=== PATIENT | male | born 1955 | race Caucasian/White ===

== ENCOUNTER 2021-01-29 17:10 | Emergency (ER) | payer SELFPAY ==
[~2021-01-29] VITALS: Ht 172.7 cm; Wt 69.4 kg
[2021-01-29 17:15] VITALS: BP 97/70
--- NOTE | 2021-01-29 17:35 | NUR ---
PT W/ C/O anxiety been in [place] for 13 months. tried to refil tamsilosin and could not refill. just need this rx refilled. experiencing urinary retention.PT STATES "I JUST WANT A PRESCIRPTION REFILL, I DON'T WANT TO BE CHECK OUT" PT REFUSING UA, LABS, AND WORK UP. DR. HAY AT BEDSIDE FOR EVALUATION.
--- NOTE | 2021-01-29 17:40 | NUR ---
THIS RN EDUCATED PT ON THE IMPORTANCE OF HAVING URINE CHECKED OUT SINCE PT STATED HE HASN'T URINATED SINCE YESTERDAY, PT STATES "I WILL BE FINE I JUST WANT MY REFILL"
--- NOTE | 2021-01-29 18:12 | NUR ---
Patient/Caregiver given discharge instructions and they have confirmed that they understand the instructions. Patient ambulatory with steady gait.
== END 2021-01-29 18:14 | disposition home or self-care (01) ==
LOC: ED 18:00
DX: R30.0 Dysuria (principal); R33.9 Retention of urine, unspecified; Z76.0 Encounter for issue of repeat prescription
CPT/HCPCS: 99281

== ENCOUNTER 2021-01-30 21:55 | Inpatient (IN) | payer MEDICARE, MEDICAID ==
[~2021-01-30] VITALS: Ht 172.7 cm; Wt 70.1 kg
--- NOTE | 2021-01-30 22:17 | NUR ---
Pt states he was sleeping on the floor, and when he went to go to the bathroom he blacked out. Pt has lac to bridge of nose. Pt states he has multiple falls like this in the last year. Pt poor historian and states he has heart disease. Pt states recently trying to live in [place] and came back about a month ago. Pt in Afib, and does not recall hx of afib. EKG done. Pt A&O x 4. Will monitor. Warm blanket given.
[2021-01-30] MEDS ORDERED: PLEASE ENTER ALLERGIES MC SCH (22:30)
[2021-01-30] MEDS ORDERED: DIPH,PERTUSS(ACELL),TET VAC/PF 0.5 ML IM-VACC ONE ×2 (22:30→22:57)
[2021-01-30] MEDS ORDERED: SODIUM CHLORIDE 0.9% 1,000ML IVBOLUS ONE (22:30)
[2021-01-30] MEDS ORDERED: LIDOCAINE-MPF 1%, 5ML ONE (22:56)
[2021-01-30] MEDS ORDERED: LIDOCAINE 1%, 10ML INFIL ONE (23:00)
[2021-01-30 23:06] LABS: BASOPHILS % (AUTO) 0 % (0-1); EOSINOPHILS % (AUTO) 0 % (1-7); LYMPHOCYTES % (AUTO) 9 % (22-44); MD NO; MEAN CORPUSCULAR HEMOGLOBIN 29.6 pg (27.5-34.5); MEAN CORPUSCULAR HGB CONC 33.4 g/dL (33.2-36.2); MEAN PLATELET VOLUME 10.1 fL (7.4-10.4); MONOCYTES % (AUTO) 12 % (2-9); NEUTROPHILS % (AUTO) 79 % (42-75); PLATELET COUNT 191 x10^3/uL (130-400); RED BLOOD COUNT 3.92 x10^6/uL (4.38-5.82); RED CELL DISTRIBUTION WIDTH 15.9 % (9.4-14.8)
[2021-01-30 23:08] LABS: ANION GAP 7 mmol/L (5-15); CALCIUM 8.7 mg/dL (8.5-10.1); CHLORIDE 103 mmol/L (98-107); CREATININE 1.26 mg/dL (0.7-1.3)
[2021-01-30 23:12] LABS: TROPONIN I 0.029 ng/mL (0.000-0.045)
[2021-01-30] MEDS ORDERED: DILTIAZEM 5 MG/ML, 5ML ONE (23:55)
--- NOTE | 2021-01-31 00:13 | NUR ---
Pt with irregular HR. Afib RVR up to 140's, and then back down to 70's. Pt remains A&O x 4, PWD, and stable BP. Pt medicated per order. Will monitor.
[2021-01-31] MEDS ORDERED: ACETAMINOPHEN 325 MG TABLET PO PRN (00:30)
[2021-01-31] MEDS ORDERED: LIDODERM 5% PATCH TD PRN (00:30)
[2021-01-31] MEDS ORDERED: ONDANSETRON ODT 4 MG PO PRN (00:30)
[2021-01-31] MEDS ORDERED: DOCUSATE 100 MG CAPSULE PO PRN (00:30)
[2021-01-31] MEDS ORDERED: MELATONIN 5 MG TABLET PO PRN (00:30)
[2021-01-31] MEDS ORDERED: ENALAPRILAT 1.25 MG/ML, 2ML IVPush PRN (00:30)
--- NOTE | 2021-01-31 00:40 | NUR ---
DERIC RN: CONFIRMED CARDIAC TELE ORDER WITH HOSPITALIST TOBY
--- NOTE | 2021-01-31 00:41 | NUR ---
Report called to Monserrat ZHANG. Pt remains P/W/D and A&O x 4.
[2021-01-31 01:30] VITALS: BP 126/79
[2021-01-31] MEDS ORDERED: DILTIAZEM 5 MG/ML, 5ML IVPush ONE ×2 (04:30)
[2021-01-31 04:52] LABS: BASOPHILS % (AUTO) 1 % (0-1); EOSINOPHILS % (AUTO) 0 % (1-7); LYMPHOCYTES % (AUTO) 11 % (22-44); MEAN CORPUSCULAR HEMOGLOBIN 29.5 pg (27.5-34.5); MEAN CORPUSCULAR HGB CONC 32.7 g/dL (33.2-36.2); MEAN PLATELET VOLUME 10.1 fL (7.4-10.4); MONOCYTES % (AUTO) 10 % (2-9); NEUTROPHILS % (AUTO) 78 % (42-75); PLATELET COUNT 203 x10^3/uL (130-400); RED BLOOD COUNT 3.89 x10^6/uL (4.38-5.82); RED CELL DISTRIBUTION WIDTH 15.4 % (9.4-14.8)
[2021-01-31 04:53] LABS: MD NO
[2021-01-31 05:01] LABS: CALCIUM 8.6 mg/dL (8.5-10.1); CHLORIDE 105 mmol/L (98-107)
[2021-01-31 05:14] LABS: ANION GAP 9 mmol/L (5-15); CREATININE 1.19 mg/dL (0.7-1.3); TROPONIN I 0.021 ng/mL (0.000-0.045)
[2021-01-31 07:23] VITALS: BP 126/81
[2021-01-31] MEDS ORDERED: POTASSIUM CHLORIDE 20 MEQ TAB.ER.PRT PO ONE (07:30)
[2021-01-31] MEDS: TAMSULOSIN 0.4 MG CAP.ER.24H PO SCH (09:19)
[2021-01-31] MEDS: CEFTRIAXONE PMX 2GM/50ML 50 ML IVPB SCH (11:20)
[2021-01-31 11:33] LABS: TROPONIN I 0.021 ng/mL (0.000-0.045)
[2021-01-31] MEDS: AZITHROMYCIN 500 MG in SODIUM CHLORIDE 0.9% 250 ML IV SCH (12:11)
[2021-01-31 13:45] VITALS: BP 94/61
[2021-01-31 20:07] LABS: MICROSCOPIC INDICATED
[2021-01-31 20:15] LABS: AMPHETAMINE SCREEN, URINE Positive (Negative); BARBITURATE SCREEN, URINE Negative (Negative); BENZODIAZEPINE SCREEN, URINE Negative (Negative); CANNABINOID SCREEN, URINE Positive (Negative)
[2021-01-31 20:16] LABS: COCAINE SCREEN, URINE Negative (Negative); METHADONE SCREEN, URINE Negative (Negative); OPIATE SCREEN, URINE Positive (Negative)
[2021-01-31 21:15] VITALS: BP 102/71
[2021-02-01] VITALS (18 sets, daily range): BP systolic 67–121; BP diastolic 52–84
[2021-02-01 05:09] LABS: BASOPHILS % (AUTO) 1 % (0-1); EOSINOPHILS % (AUTO) 0 % (1-7); LYMPHOCYTES % (AUTO) 17 % (22-44); MD NO; MEAN CORPUSCULAR HEMOGLOBIN 29.9 pg (27.5-34.5); MEAN CORPUSCULAR HGB CONC 33.2 g/dL (33.2-36.2); MEAN PLATELET VOLUME 10.2 fL (7.4-10.4); MONOCYTES % (AUTO) 13 % (2-9); NEUTROPHILS % (AUTO) 69 % (42-75); PLATELET COUNT 195 x10^3/uL (130-400); RED BLOOD COUNT 3.77 x10^6/uL (4.38-5.82); RED CELL DISTRIBUTION WIDTH 15.4 % (9.4-14.8)
[2021-02-01 05:18] LABS: CHLORIDE 105 mmol/L (98-107)
[2021-02-01 05:33] LABS: ALANINE AMINOTRANSFERASE 502 U/L (12-78); ALBUMIN 2.8 g/dL (3.4-5.0); ALKALINE PHOSPHATASE 113 U/L (45-117); ANION GAP 10 mmol/L (5-15); BILIRUBIN,TOTAL 0.8 mg/dL (0.2-1.0); CALCIUM 8.3 mg/dL (8.5-10.1); CREATININE 1.12 mg/dL (0.7-1.3); TOTAL PROTEIN 6.3 g/dL (6.4-8.2)
[2021-02-01] MEDS: ASPIRIN 81 MG TABLET EC PO SCH (05:44)
[2021-02-01] MEDS: TAMSULOSIN 0.4 MG CAP.ER.24H PO SCH (08:13)
[2021-02-01] MEDS ORDERED: SPIRONOLACTONE 25 MG TABLET PO SCH ×2 (09:00→09:09)
[2021-02-01] MEDS ORDERED: ACETAMINOPHEN 325 MG TABLET PO PRN (09:00)
[2021-02-01] MEDS ORDERED: CARVEDILOL 6.25 MG TABLET PO SCH ×2 (09:00→09:08)
[2021-02-01] MEDS ORDERED: LISINOPRIL 10 MG TABLET PO SCH ×2 (09:00→09:08)
[2021-02-01] MEDS ORDERED: FUROSEMIDE 40 MG/4 ML IV SCH ×3 (09:00→10:00)
[2021-02-01] MEDS: CEFTRIAXONE PMX 2GM/50ML 50 ML IVPB SCH (11:13)
[2021-02-01] MEDS: AZITHROMYCIN 500 MG in SODIUM CHLORIDE 0.9% 250 ML IV SCH (12:06)
[2021-02-01] MEDS ORDERED: SODIUM CHLORIDE 0.9%, 250ML IVBOLUS ONE ×2 (13:30)
[2021-02-01 14:04] LABS: TROPONIN I 0.022 ng/mL (0.000-0.045)
[2021-02-01] MEDS: CARVEDILOL 6.25 MG TABLET PO SCH (17:54)
[2021-02-01] MEDS: FLUTICASONE NASAL SPRAY 16GM NAS SCH (22:07)
[2021-02-01] MEDS: GUAIFENESIN/DM 200-20MG, 10ML UDC PO PRN (22:08)
[2021-02-02 02:36] VITALS: BP 92/60
[2021-02-02 05:10] VITALS: BP 95/60
[2021-02-02] MEDS: ASPIRIN 81 MG TABLET EC PO SCH (05:15)
[2021-02-02] MEDS: CARVEDILOL 6.25 MG TABLET PO SCH ×2 (05:17→17:49)
[2021-02-02 05:32] LABS: BASOPHILS % (AUTO) 1 % (0-1); EOSINOPHILS % (AUTO) 0 % (1-7); LYMPHOCYTES % (AUTO) 14 % (22-44); MEAN CORPUSCULAR HEMOGLOBIN 29.9 pg (27.5-34.5); MEAN CORPUSCULAR HGB CONC 33.4 g/dL (33.2-36.2); MEAN PLATELET VOLUME 10.1 fL (7.4-10.4); MONOCYTES % (AUTO) 13 % (2-9); NEUTROPHILS % (AUTO) 72 % (42-75); PLATELET COUNT 216 x10^3/uL (130-400); RED BLOOD COUNT 3.67 x10^6/uL (4.38-5.82); RED CELL DISTRIBUTION WIDTH 15.3 % (9.4-14.8)
[2021-02-02 05:33] LABS: MD NO
[2021-02-02 05:39] LABS: ALBUMIN 2.5 g/dL (3.4-5.0); ANION GAP 7 mmol/L (5-15); CALCIUM 8.2 mg/dL (8.5-10.1); CHLORIDE 104 mmol/L (98-107)
[2021-02-02 05:43] LABS: ALANINE AMINOTRANSFERASE 347 U/L (12-78); ALKALINE PHOSPHATASE 105 U/L (45-117); BILIRUBIN,TOTAL 0.5 mg/dL (0.2-1.0); CHOL/HDL RATIO 6.6; CHOLESTEROL, TOTAL 93 mg/dL (140-239); CREATININE 1.15 mg/dL (0.7-1.3); HDL CHOL % 15 % (26-37); HDL CHOLESTEROL (DIRECT) 14 mg/dL (40-60); LDL CHOLESTEROL,CALCULATED 58 mg/dL (54-169); LDL/HDL RATIO 4.1 (0.5-3.0); TOTAL PROTEIN 5.7 g/dL (6.4-8.2); TRIGLYCERIDES 106 mg/dL (50-200); VLDL CHOLESTEROL 21 mg/dL (0-25)
[2021-02-02 06:31] VITALS: BP 93/61
[2021-02-02] MEDS ORDERED: LISINOPRIL 10 MG TABLET PO SCH (09:00)
[2021-02-02] MEDS ORDERED: SPIRONOLACTONE 25 MG TABLET PO SCH (09:00)
[2021-02-02] MEDS ORDERED: FUROSEMIDE 40 MG/4 ML IV SCH (09:00)
[2021-02-02] MEDS: TAMSULOSIN 0.4 MG CAP.ER.24H PO SCH (09:05)
[2021-02-02] MEDS: FLUTICASONE NASAL SPRAY 16GM NAS SCH ×2 (09:05→20:21)
[2021-02-02] MEDS: CEFTRIAXONE PMX 2GM/50ML 50 ML IVPB SCH (11:36)
[2021-02-02] MEDS: AZITHROMYCIN 500 MG in SODIUM CHLORIDE 0.9% 250 ML IV SCH (12:41)
[2021-02-02 14:10] VITALS: BP 120/86
[2021-02-02 17:48] VITALS: BP 97/66
[2021-02-02 20:00] VITALS: BP 91/62
[2021-02-02] MEDS: GUAIFENESIN/DM 200-20MG, 10ML UDC PO PRN (20:21)
[2021-02-02] MEDS ORDERED: MELATONIN 5 MG TABLET PO PRN (20:30)
[2021-02-03 00:19] VITALS: BP 93/51
[2021-02-03 04:40] LABS: BASOPHILS % (AUTO) 1 % (0-1); EOSINOPHILS % (AUTO) 1 % (1-7); LYMPHOCYTES % (AUTO) 13 % (22-44); MEAN CORPUSCULAR HEMOGLOBIN 29.3 pg (27.5-34.5); MEAN CORPUSCULAR HGB CONC 32.8 g/dL (33.2-36.2); MEAN PLATELET VOLUME 9.8 fL (7.4-10.4); MONOCYTES % (AUTO) 12 % (2-9); NEUTROPHILS % (AUTO) 74 % (42-75); PLATELET COUNT 222 x10^3/uL (130-400); RED BLOOD COUNT 3.71 x10^6/uL (4.38-5.82); RED CELL DISTRIBUTION WIDTH 15.8 % (9.4-14.8)
[2021-02-03 04:41] LABS: MD NO
[2021-02-03 04:51] LABS: ALANINE AMINOTRANSFERASE 305 U/L (12-78); ALBUMIN 2.6 g/dL (3.4-5.0); ANION GAP 7 mmol/L (5-15); CALCIUM 8.5 mg/dL (8.5-10.1); CHLORIDE 104 mmol/L (98-107); CREATININE 1.22 mg/dL (0.7-1.3)
[2021-02-03 04:53] LABS: ALKALINE PHOSPHATASE 129 U/L (45-117); BILIRUBIN,TOTAL 0.4 mg/dL (0.2-1.0)
[2021-02-03 06:31] VITALS: BP 112/72
[2021-02-03] MEDS: ASPIRIN 81 MG TABLET EC PO SCH (06:32)
[2021-02-03] MEDS: CARVEDILOL 6.25 MG TABLET PO SCH (06:33)
[2021-02-03 08:13] VITALS: BP 145/78
[2021-02-03] MEDS ORDERED: AZITHROMYCIN 500 MG TABLET PO SCH (09:00)
[2021-02-03] MEDS: TAMSULOSIN 0.4 MG CAP.ER.24H PO SCH (09:24)
[2021-02-03] MEDS: FLUTICASONE NASAL SPRAY 16GM NAS SCH (09:29)
== END 2021-02-03 10:57 | disposition left against medical advice (07) | DRG 291 ==
LOC: ED 23:06 → EDIP 01-31 00:14 → 5SO 01-31 00:50
PROVIDERS: ADMIT Internal Medicine; ATTEND Family Medicine
PROC: 0HQ1XZZ Repair Face Skin, External Approach (ICD-10-PCS; principal; 2021-01-31)
DX: I11.0 Hypertensive heart disease with heart failure (principal); I50.21 Acute systolic (congestive) heart failure; J18.9 Pneumonia, unspecified organism; E46 Unspecified protein-calorie malnutrition; D68.69 Other thrombophilia; I42.9 Cardiomyopathy, unspecified; I48.91 Unspecified atrial fibrillation; B96.20 Unspecified Escherichia coli [E. coli] as the cause of diseases classified elsewhere; Z66 Do not resuscitate; D64.9 Anemia, unspecified; F15.10 Other stimulant abuse, uncomplicated; I07.1 Rheumatic tricuspid insufficiency; I27.20 Pulmonary hypertension, unspecified; I95.9 Hypotension, unspecified; N40.0 Benign prostatic hyperplasia without lower urinary tract symptoms; S01.21XA Laceration without foreign body of nose, initial encounter; Z82.3 Family history of stroke; Z87.891 Personal history of nicotine dependence; Z91.14 Patient's other noncompliance with medication regimen; Z59.0 Homelessness; Z23 Encounter for immunization; W18.39XA Other fall on same level, initial encounter; Y93.89 Activity, other specified; Y92.89 Other specified places as the place of occurrence of the external cause; Y99.8 Other external cause status; Z68.23 Body mass index [BMI] 23.0-23.9, adult
CPT/HCPCS: 36415; 70450; 71045; 72125; 80048; 80053; 80061; 80074; 80307; 81001; 82040; 82962; 83036; 83735; 83880; 84100; 84443; 84484; 85025; 87040; 87070; 87077; 87186; 87205; 90715; 93005; 93306; 93880; G0378; J0456; J0696; J1940; J7030; J7050